=== PATIENT | female | born 1995 | race Hispanic/Latino ===

== ENCOUNTER 2018-10-19 17:34 | Emergency (ER) | payer OTHER ==
--- OUTSIDE RECORDS SUMMARY | 2018-10-19 17:41 | XMS REPORT ---
:1995 [facility] Address [address] [place] [address] Care Team Providers Name Role Phone Unavailable Unavailable Unavailable Payers Payer Name Policy Type Policy Number Effective Date Expiration Date Problems This patient has no known problems. Allergies, Adverse Reactions, Alerts This patient has no known allergies or adverse reactions. Medications This patient has no known medications. Results Test Description Test Time Test Comments Text Results Atomic Results Result Comments - US 2018-07-17 Patient Name: MIREYA MCCOLLUM Unit No: [id number] PREG 10:36:00 EXAMS: CPT CODE: AFTER [id number] PREG AFTER 1ST TRI [id number] [place] [address]'[facility] [address] [place], [place] [address] OBSTETRICAL ULTRASOUND REPORT Pat. Name: MIREYA MCCOLLUM Pat. No: [id number] Study Date: 07/17/2018 8:47am , Age: 01 1995, 23 Pregnancies: 1, Para 0 LMP: 02/15/2018 GA by LMP: 21w5d GA by US: 20w3d GA Selected: 21w5d (LMP) JAKY: 11/22/2018 Referring MD: EMA MURO Compo Caster: Jeanne Ha RDMS, RVT CPT4: [id number] Admitting MD: EMA MURO Hist/Ind: SCAN 1 ANATOMY MEASUREMENTS AGE GROWTH EVALUATION Measurement GA Range Srce %for GA Ratios ----- ---- ------- BPD 4.7 cm 20w2d (12a1w-15g7g) Hadl BPD 7% FL/BPD 0.72 HC 17.9 cm 20w2d (47p8f-12m1o) Hadl HC 9% FL/AC 0.21 APD 5.1 cm APD HC/AC 1.10 (1.05 - 1.24) TAD 5.3 cm TAD CI 0.77 (0.70 - 0.86) AC 16.3 cm 21w1d (30l9k-98f8i) Hadl AC 38% FL 3.4 cm 20w2d (09m1k-73s1k) Hadl FL 20% HL 3.1 cm 20w2d (61h7b-30e5g) Juan HL 26% GA for sonogram 20w3d (15z9j-98r9w) Weight Estimate: based on (BPD,HC,AC,FL) Hadlock Weight: 390 gm (333-447) Hadlock : 0lbs, 13oz Normal: 459 gm (308-902) Art Wt% 32% for 21.7 wks Cervical Length: 3.1 cm Heart Rate: 147 bpm CLINICAL SUMMARY Type of Gestation: Fontanez Intrauterine in variable presentation. size is appropriate for gestational age by weight. growth: Consistent with normal growth motion and organs seen: heart motion seen somatic activity observed body and limb movements seen Four chamber heart observed Left ventricular outflow tract (LVOT) seen Right ventricular outflow tract (RVOT) seen Regular cardiac rhythm observed Normal intracranial anatomy seen [facility] NAME: MIREYA MCCOLLUM Radiology Department PHYS: Manjual [address] : 1995 AGE: 23 SEX: [place], [place] [address] LOC: JessicaRAD PHONE #: [phone] EXAM DATE: 07/17/2018 STATUS: REG CLI FAX #: [phone] RAD NO: Page 1 Signed Report (CONTINUED) Patient Name: MIREYA MCCOLLUM Unit No: [id number] EXAMS: CPT CODE: [id number] US PREG AFTER 1ST TRI [address] <Continued> Umbilical cord insertion in fetus seen stomach, Renal Fossa, Bladder and Spine seen Three vessel umbilical cord noted abnormalities observed: None seen at this exam Placental location: Posterior Right lateral Placental maturity : Grade 1 There is no evidence of placenta previa. Amniotic fluid volume is normal. Uterus and adnexa: No significant abnormalities seen FOLLOW UP FOR GROWTH CLINICALLY INDICATED. Thank you for allowing us to participate in the care of this patient. Melinda Grullon M.D. Electronic Signature 07/17/2018 10:36am at 1036 Reported and signed by: Justina Grullon MD CC: Ema Muro MD Technologist: Jeanne Ha RDMS, RVT Probe: Trnscrbd D/ (6490) t.SDR.[email or web address] Orig Print D/T: S: 07/17/2018 (2607) [facility] NAME: MIREYA MCCOLLUM Radiology Department PHYS: Manjula [address] : 1995 AGE: 23 SEX: F [place] [address] LOC: Eli.RAD PHONE #: [phone] EXAM DATE: 07/17/2018 STATUS: REG CLI FAX #: [phone] RAD NO: Page 2 Signed Report Patient Name: MIREYA MCCOLLUM Unit No: [id number] EXAMS: CPT CODE: [id number] US PREG AFTER 1ST TRI [address] <Continued> [facility] NAME: MIREYA MCCOLLUM Radiology Department PHYS: Manjula [address] : 1995 AGE: 23 SEX: F [place] [address] LOC: Eli.RAD PHONE #: [phone] EXAM DATE: 07/17/2018 STATUS: REG CLI FAX #: [phone] RAD NO: Page 3 Signed Report
[2018-10-19 18:32] LABS: Absolute Lymphocytes (CBC) 0.7 K/uL (0.7-4.9); Absolute Monocytes 1.1 K/uL (0.1-1.3); Absolute Neutrophil 8.5 K/uL (1.8-8.0); Basophils % 0.2 % (0-1.3); Eosinophils % 0.2 % (0-4.4); Hematocrit 32.7 % (36.0-45.0); Lymphocytes % 7.2 % (15.3-44.8); MPV 10.1 fL (7.6-11.3); RBC Red Blood Cell Count 3.72 M/uL (3.86-4.86)
[2018-10-19 18:48] LABS: Potassium 3.7 mmol/L (3.5-5.1)
--- NOTE | 2018-10-19 19:36 | ER ---
Nurse's Notes [facility] Name: Joselyn Cheung Age: 23 yrs Sex: Female : 1995 Arrival Date: 10/19/2018 Time: 17:39 Bed 16 Private MD: Diagnosis: Acute upper respiratory infection, unspecified Presentation: 10/19 18:00 Presenting complaint: Patient states: Chest pressure, nasal congestion, and left ear aj pain, Patient reports she was told to take Mucinex DM by OBGYN and then was told not to take it after she had administered the dose. Patient appears anxious. 35 weeks . Transition of care: patient was not received from another setting of care. Onset of symptoms was October 19, 2018. Risk Assessment: Do you want to hurt yourself or someone else? Patient reports no desire to harm self or others. Initial Sepsis Screen: Does the patient meet any 2 criteria? No. Patient's initial sepsis screen is negative. Does the patient have a suspected source of infection? No. Patient's initial sepsis screen is negative. Care prior to arrival: None. 18:00 Method Of Arrival: Ambulatory aj 18:00 Acuity: SORAYA 3 aj Triage Assessment: 18:04 General: Appears in no apparent distress. comfortable, Behavior is calm, cooperative, aj appropriate for age. Pain: Denies pain. Neuro: Level of Consciousness is awake, alert, obeys commands, Oriented to person, place, time, situation, Appropriate for age. Cardiovascular: Reports chest pain, Capillary refill < 3 seconds in bilateral fingers Patient's skin is warm and dry. Respiratory: Airway is patent Respiratory effort is even, unlabored, Respiratory pattern is regular, symmetrical. Derm: Skin is intact, is healthy with good turgor, Skin is pink, warm \T\ dry. normal. 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 - Social history:: Smoking status: Patient/guardian denies using tobacco. - Ebola Screening: : Patient negative for fever greater than or equal to 101.5 degrees Fahrenheit, and additional compatible Ebola Virus Disease symptoms Patient denies exposure to infectious person Patient denies travel to an Ebola-affected area in the 21 days before illness onset No symptoms or risks identified at this time. Screenin:21 Abuse screen: Denies threats or abuse. Denies injuries from another. Nutritional aj screening: No deficits noted. Tuberculosis screening: No symptoms or risk factors identified. Fall Risk None identified. Assessment: 18:21 Reassessment: Patient appears in no apparent distress at this time. No changes from aj previously documented assessment. Patient and/or family updated on plan of care and expected duration. Pain level reassessed. Patient is alert, oriented x 3, equal unlabored respirations, skin warm/dry/pink. 19:11 Reassessment: critical laboratory called by [facility] laboratory staff D dimer 923. ED rr5 provider aware. 19:42 Reassessment: Patient appears in no apparent distress at this time. No changes from aj previously documented assessment. Patient and/or family updated on plan of care and expected duration. Pain level reassessed. Patient is alert, oriented x 3, equal unlabored respirations, skin warm/dry/pink. Patient states feeling better. 19:42 Pain: Pain does not radiate. Pain began gradually. aj Vital Signs: 18:04 BP 128 / 86; Pulse 103; Resp 22; Temp 98.5; Pulse Ox 98% on R/A; Weight 75.3 kg; Height aj 5 ft. 4 in. (162.56 cm); 19:19 BP 109 / 78; Pulse 97; Resp 20; Pulse Ox 98% on R/A; aj 18:04 Body Mass Index 28.49 (75.30 kg, 162.56 cm) aj ED Course: 17:39 Patient arrived in ED. rg4 17:52 Donell Landin PA is PHCP. jr8 17:52 Danyelle Wei MD is Attending Physician. jr8 18:00 Dolly Paz, AMOR is Primary Nurse. aj 18:01 Triage completed. aj 18:04 Arm band placed on left wrist. Patient placed in an exam room, on a stretcher. aj 18:21 Patient has correct armband on for positive identification. Allergy band placed. Bed in aj low position. Call light in reach. Side rails up X 1. Adult w/ patient. security monitor on. Pulse ox on. NIBP on. 18:21 Inserted saline lock: 20 gauge in left upper arm, using aseptic technique. Blood aj collected. 19:42 No provider procedures requiring assistance completed. IV discontinued, intact, aj bleeding controlled, No redness/swelling at site. Pressure dressing applied. Patient maintains SpO2 saturation greater than 95% on room air. Administered Medications: No medications were administered Outcome: 19:35 Discharge ordered by MD. valdovinos 19:42 Discharged to home ambulatory, with family. aj 19:42 Condition: good 19:42 Discharge instructions given to patient, family, Instructed on discharge instructions, follow up and referral plans. Demonstrated understanding of instructions, follow-up care. 19:43 Patient left the ED. aj Signatures: Dolly Paz, RN RN Donell Valenzuela PA PA jr8 Norma Mcclelland rg4 Sarthak Lyons, RN RN rr5 Corrections: (The following items were deleted from the chart) 18:03 18:00 Presenting complaint: Patient states: Chest pressure, nasal congestion, and left aj ear pain, Patient reports she was told to take Mucinex DM by OBGYN and then was told not to take it after she had administered the dose. Patient appears anxious aj
--- NOTE | 2018-10-19 19:36 | EDPHYS ---
Physician Documentation [facility] Name: Joselyn Cheung Age: 23 yrs Sex: Female : 1995 Arrival Date: 10/19/2018 Time: 17:39 Bed 16 Private MD: ED Physician Danyelle Wei HPI: 10/19 18:53 This 23 yrs old Female presents to ER via Ambulatory with complaints of Cough, jr8 Chest Pain, Breathing Difficulty. 18:53 The patient or guardian reports cough, that is intermittent, described as mild, with jr8 productive sputum, that is yellow. Onset: The symptoms/episode began/occurred gradually, 1 week(s) ago. Severity of symptoms: At their worst the symptoms were moderate, in the emergency department the symptoms are unchanged. Modifying factors: The symptoms are alleviated by nothing, the symptoms are aggravated by nothing. Associated signs and symptoms: Pertinent positives: rhinorrhea, sore throat. The patient has not experienced similar symptoms in the past. The patient has been recently seen by a physician:. Patient approximately 35 weeks . Stated that for the past couple of weeks has had on/off shortness of breath along with chest pressure that is intermittent. Now with cough and congestion. . 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 - Social history:: Smoking status: Patient/guardian denies using tobacco. - Ebola Screening: : Patient negative for fever greater than or equal to 101.5 degrees Fahrenheit, and additional compatible Ebola Virus Disease symptoms Patient denies exposure to infectious person Patient denies travel to an Ebola-affected area in the 21 days before illness onset No symptoms or risks identified at this time. ROS: 18:53 Eyes: Negative for injury, pain, redness, and discharge, Neck: Negative for injury, jr8 pain, and swelling, Abdomen/GI: Negative for abdominal pain, nausea, vomiting, diarrhea, and constipation, Back: Negative for injury and pain, MS/Extremity: Negative for injury and deformity, Skin: Negative for injury, rash, and discoloration, Neuro: Negative for headache, weakness, numbness, tingling, and seizure. 18:53 Cardiovascular: Positive for chest pain, Negative for edema, orthopnea, palpitations, paroxysmal nocturnal dyspnea. 18:53 Respiratory: Positive for cough, with yellow sputum, shortness of breath. Exam: 18:53 Eyes: Pupils equal round and reactive to light, extra-ocular motions intact. Lids and jr8 lashes normal. Conjunctiva and sclera are non-icteric and not injected. Cornea within normal limits. Periorbital areas with no swelling, redness, or edema. ENT: Nares patent. No nasal discharge, no septal abnormalities noted. Tympanic membranes are normal and external auditory canals are clear. Oropharynx with no redness, swelling, or masses, exudates, or evidence of obstruction, uvula midline. Mucous membranes moist. Neck: Trachea midline, no thyromegaly or masses palpated, and no cervical lymphadenopathy. Supple, full range of motion without nuchal rigidity, or vertebral point tenderness. No Meningismus. Cardiovascular: Regular rate and rhythm with a normal S1 and S2. No gallops, murmurs, or rubs. Normal PMI, no JVD. No pulse deficits. Respiratory: Lungs have equal breath sounds bilaterally, clear to auscultation and percussion. No rales, rhonchi or wheezes noted. No increased work of breathing, no retractions or nasal flaring. Abdomen/GI: Soft, non-tender, with normal bowel sounds. No distension or tympany. No guarding or rebound. No evidence of tenderness throughout. Gravid in appearance Back: No spinal tenderness. No costovertebral tenderness. Full range of motion. Skin: Warm, dry with normal turgor. Normal color with no rashes, no lesions, and no evidence of cellulitis. MS/ Extremity: Pulses equal, no cyanosis. Neurovascular intact. Full, normal range of motion. Neuro: Awake and alert, GCS 15, oriented to person, place, time, and situation. Cranial nerves II-XII grossly intact. Motor strength 5/5 in all extremities. Sensory grossly intact. Cerebellar exam normal. Normal gait. Vital Signs: 18:04 BP 128 / 86; Pulse 103; Resp 22; Temp 98.5; Pulse Ox 98% on R/A; Weight 75.3 kg; Height aj 5 ft. 4 in. (162.56 cm); 19:19 BP 109 / 78; Pulse 97; Resp 20; Pulse Ox 98% on R/A; aj 18:04 Body Mass Index 28.49 (75.30 kg, 162.56 cm) aj MDM: 17:52 Patient medically screened. jr8 19:33 Data reviewed: vital signs, nurses notes, lab test result(s), EKG. Data interpreted: jr8 Pulse oximetry: on room air is 98 %. Interpretation: normal. Counseling: I had a detailed discussion with the patient and/or guardian regarding: the historical points, exam findings, and any diagnostic results supporting the discharge/admit diagnosis, lab results, the need for outpatient follow up, an OB/Gyne specialist, to return to the emergency department if symptoms worsen or persist or if there are any questions or concerns that arise at home. ED course: Based on criteria for DD. Patient well within acceptable range for 35 weeks gestation. No other acute findings noted. 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 Counseled on what meds are acceptable during . If she were to worsen or if something were to change to come back. Patient pleased and good with current plan . 10/19 18:07 Order name: CBC with Diff; Complete Time: 18:48 jr8 10/19 18:07 Order name: Basic Metabolic Panel; Complete Time: 18:49 jr8 10/19 18:07 Order name: IV; Complete Time: 18:24 jr8 10/19 18:07 Order name: EKG - Nurse/Tech; Complete Time: 18:24 jr8 10/19 18:08 Order name: DD; Complete Time: 19:25 jr8 Administered Medications: No medications were administered Disposition: 10/19/18 19:35 Discharged to Home. Impression: Acute upper respiratory infection, unspecified. - Condition is Stable. - Discharge Instructions: Upper Respiratory Infection, Adult. - Family Work Release, Medication Reconciliation Form, Thank You Letter, Antibiotic Education, Prescription Opioid Use form. - Follow up: Private Physician; When: 5 - 6 days; Reason: Recheck today's complaints, Continuance of care, Re-evaluation by your physician. - Problem is new. - Symptoms have improved. - Notes: Flonase for sinus congestion Skylar, Zyrtec, or Claritin for allergy symptoms Cough Drops or Chloroseptic spray for cough and sore throat Mucinex DM acceptable for cough and congestion Push fluids Rest Addendum: 10/24/2018 14:20 Co-signature as Attending Physician, Danyelle Wei MD. m a2 Signatures: Dispatcher [employer] Dolly Hernandez, RN RN Donell Valenzuela PA PA jr8 Danyelle Wei MD MD ma2 Corrections: (The following items were deleted from the chart) 10/19 19:43 19:35 10/19/2018 19:35 Discharged to Home. Impression: Acute upper respiratory aj infection, unspecified. Condition is Stable. Forms are Family Work Release, Medication Reconciliation Form, Thank You Letter, Antibiotic Education, Prescription Opioid Use. Follow up: Private Physician; When: 5 - 6 days; Reason: Recheck today's complaints, Continuance of care, Re-evaluation by your physician. Problem is new. Symptoms have improved. jr8
--- NOTE | 2018-10-22 07:13 | EKG ---
Test Date: 2018-10-19 Test Time: 18:16:10 Hand Counter: YANDEL MEASUREMENT RESULTS: Intervals: Rate: 95 VA: 144 QRSD: 78 QT: 340 QTc: 427 [place]: P: 49 VA: 144 QRS: 79 T: 28 INTERPRETIVE STATEMENTS: Normal sinus rhythm Normal ECG No previous ECG available for comparison Electronically Signed On 10-22-18 07:12:32 CDT by Pablo Barron
== END 2018-10-19 19:43 | disposition home or self-care (01) ==
LOC: ER 17:34
DX: J06.9 Acute upper respiratory infection, unspecified (principal); E03.9 Hypothyroidism, unspecified; Z88.0 Allergy status to penicillin
CPT/HCPCS: 36415; 80048; 85025; 85379; 93005; 99284